=== PATIENT | female | born 1945 | race Caucasian/White ===

== ENCOUNTER 2016-09-07 09:26 | Emergency (ER) | payer MEDICARE ==
[2016-09-07 09:33] VITALS: BP 124/84
--- NOTE | 2016-09-07 09:36 | UC ---
Throat Pain/Nasal Adriano HPI - HPI Summary HPI Summary: 71 YEAR OLD FEMALE PRESENTS WITH COMPLAINS OF SORE THROAT. - History of Current Complaint Chief Complaint: UCRespiratory Stated Complaint: SORE THROAT Time Seen by Provider: 09/07/16 09:36 Hx Last Menstrual Period: n/a - Allergies/Home Medications Allergies/Adverse Reactions: Allergies Allergy/AdvReac Type Severity Reaction Status Date / Time dust, pollen Allergy Sneezing Uncoded 09/07/16 09:33 Home Medications: Home Medications Ranitidine TAB (NF) [Zantac TAB (NF)] 150 mg PO BID 09/07/16 [History Confirmed 09/07/16] PMH/Surg Hx/FS Hx/Imm Hx Previously Healthy: Yes - Surgical History Surgical History: Yes Surgery Procedure, Year, and Place: Appendectomy,left ankle fusion,b/l carpal tunnel surgery, B/L wrist fusion,colecystecomy,b/l knee replacement,C3-4-5 fusions, - Family History Known Family History: Positive: Cardiac Disease, Hypertension - Social History Alcohol Use: None Substance Use Type: None Smoking Status (MU): Never Smoked Tobacco Review of Systems Constitutional: Negative Skin: Negative Eyes: Negative ENT: Sore Throat, Nasal Discharge, Sinus Congestion Respiratory: Negative Cardiovascular: Negative Gastrointestinal: Negative Genitourinary: Negative Motor: Negative Neurovascular: Negative Musculoskeletal: Negative Neurological: Negative Psychological: Negative All Other Systems Reviewed And Are Negative: Yes Physical Exam Triage Information Reviewed: Yes Vital Signs: Initial Vital Signs Temp 37.1 C 09/07/16 09:28 Pulse 81 09/07/16 09:28 Resp 18 09/07/16 09:28 BP 124/84 09/07/16 09:28 Pulse Ox 97 09/07/16 09:28 Eye Exam: Normal ENT: Positive: Pharyngeal erythema, Nasal congestion, Nasal drainage Dental Exam: Normal Neck exam: Normal Neck: Positive: 1 Respiratory Exam: Normal Cardiovascular Exam: Normal Abdominal Exam: Normal Musculoskeletal Exam: Normal Neurological Exam: Normal Psychological Exam: Normal Skin Exam: Normal Throat Pain/Nasal Course/Dx - Differential Dx/Diagnosis Provider Diagnoses: PHARYNGITIS Discharge - Discharge Plan Condition: Stable Disposition: HOME Prescriptions: Azithromyxin AZAEL (NF) [Z-Azael (Zithromax) 250 mg tabs #6] 2 tab PO .TODAY, THEN 1 DAILY #6 tab LoraTADine TAB(NF) [Claritin 10 MG TAB(NF)] 10 mg PO DAILY #30 tab Magic M W2 Manish/Maal/Nyst/Lido* 15 ml SWISH SPIT QID #120 ml guaiFENesin/CODIEN 100MG-10MG* [Robitussin AC 100Mg-10Mg*] 5 ml PO Q6H PRN #120 udc MDD 20 ml PRN Reason: Cough Patient Education Materials: Pharyngitis (ED) Referrals: Nabila Rincon MD [Primary Care Provider] -
== END 2016-09-07 10:17 | disposition home or self-care (01) ==
LOC: UCCORT 09:26
DX: J02.9 Acute pharyngitis, unspecified (principal); R09.81 Nasal congestion; Z96.653 Presence of artificial knee joint, bilateral
CPT/HCPCS: 87651; 99212; G0463

== ENCOUNTER 2016-11-07 10:37 | Emergency (ER) | payer MEDICARE ==
--- NOTE | 2016-11-07 10:41 | UC ---
Respiratory Complaint HPI - HPI Summary HPI Summary: 71 YEAR OLD FEMALE PRESENTS WITH COUGH, FEVER, AND EAR PAIN. - History of Current Complaint Stated Complaint: COUGH Time Seen by Provider: 11/07/16 10:41 Hx Obtained From: Patient Hx Last Menstrual Period: n/a Onset/Duration: Sudden Onset Severity Initially: Moderate Severity Currently: Moderate Pain Scale Used: 0-10 Numeric - 5 - Allergies/Home Medications Allergies/Adverse Reactions: Allergies Allergy/AdvReac Type Severity Reaction Status Date / Time dust, pollen Allergy Sneezing Uncoded 11/07/16 10:44 PMH/Surg Hx/FS Hx/Imm Hx Previously Healthy: Yes - Surgical History Surgical History: Yes Surgery Procedure, Year, and Place: Appendectomy,left ankle fusion,b/l carpal tunnel surgery, B/L wrist fusion,colecystecomy,b/l knee replacement,C3-4-5 fusions, - Family History Known Family History: Positive: Cardiac Disease, Hypertension - Social History Alcohol Use: None Substance Use Type: None Smoking Status (MU): Never Smoked Tobacco Review of Systems Constitutional: Negative Skin: Negative Eyes: Negative ENT: Sore Throat, Nasal Discharge, Sinus Congestion, Sinus Pain/Tenderness Respiratory: Cough Cardiovascular: Negative Gastrointestinal: Negative Genitourinary: Negative Motor: Negative Neurovascular: Negative Musculoskeletal: Negative Neurological: Negative Psychological: Negative All Other Systems Reviewed And Are Negative: Yes Physical Exam Triage Information Reviewed: Yes Vital Signs Reviewed: Yes Eye Exam: Normal ENT Exam: Normal ENT: Positive: Pharyngeal erythema, Nasal congestion Dental Exam: Normal Neck exam: Normal Neck: Positive: 1 Respiratory: Positive: Rhonchi, Wheezing Cardiovascular Exam: Normal Abdominal Exam: Normal Musculoskeletal Exam: Normal Neurological Exam: Normal Psychological Exam: Normal Skin Exam: Normal Respiratory Course/Dx - Differential Dx/Diagnosis Provider Diagnoses: BRONCHITIS Discharge - Discharge Plan Condition: Stable Disposition: HOME Prescriptions: Azithromyxin KATIE (NF) [Z-Katie (Zithromax) 250 mg tabs #6] 2 tab PO .TODAY, THEN 1 DAILY #6 tab guaiFENesin/CODIEN 100MG-10MG* [Robitussin AC 100Mg-10Mg*] 5 ml PO Q8H PRN #120 ml MDD 15 ml PRN Reason: Cough predniSONE TAB* [Deltasone TAB*] 40 mg PO DAILY #10 tab Patient Education Materials: Cold Symptoms (ED) Referrals: Nabila Rincon MD [Primary Care Provider] -
[2016-11-07 10:44] VITALS: BP 128/73
== END 2016-11-07 10:56 | disposition home or self-care (01) ==
LOC: UCCORT 10:37
DX: J40 Bronchitis, not specified as acute or chronic (principal)
CPT/HCPCS: 99212; G0463

== ENCOUNTER 2017-01-20 10:33 | Emergency (ER) | payer MEDICARE ==
[2017-01-20 10:55] VITALS: BP 108/87
--- NOTE | 2017-01-20 12:02 | UC ---
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 She states a hx of thrush "but only after an abx and I haven't had one recently". Denies fever. States an increase in coughing. " -states she gets strep annually this time of year. -denies DM, had routine labs 11/21 for pre-op for rt shoulder. she was on abx at that time but none since. -denies oral or inhaled steroids. -denies RF for HIV -she does wear dentures. -will be going to [place] in 6 days to see her grandkids. - History of Current Complaint Chief Complaint: UCRespiratory Stated Complaint: SORE THROAT Time Seen by Provider: 01/20/17 11:38 Hx Last Menstrual Period: n/a - Allergies/Home Medications Allergies/Adverse Reactions: Allergies Allergy/AdvReac Type Severity Reaction Status Date / Time No Known Allergies Allergy Verified 01/20/17 10:47 Home Medications: Home Medications Omeprazole CAP* [Prilosec CAP* 20 MG] 20 mg PO DAILY 01/20/17 [History Confirmed 01/20/17] PMH/Surg Hx/FS Hx/Imm Hx Previously Healthy: Yes GI/ History: Gastroesophageal Reflux Psychological History: Anxiety, Depression - Surgical History Surgical History: Yes Surgery Procedure, Year, and Place: Appendectomy,left ankle fusion,b/l carpal tunnel surgery, B/L wrist fusion,colecystecomy,b/l knee replacement,C3-4-5 fusions, R shoulder - Family History Known Family History: Positive: Cardiac Disease, Hypertension - Social History Alcohol Use: None Substance Use Type: None Smoking Status (MU): Never Smoked Tobacco - Immunization History Most Recent Influenza Vaccination: 10/2016 Review of Systems Constitutional: Negative Skin: Negative Eyes: Negative ENT: Sore Throat, Other - rt tongue pain x 2 days. tongue coated with white Respiratory: Negative Cardiovascular: Negative Gastrointestinal: Negative Genitourinary: Negative Motor: Negative Neurovascular: Negative Musculoskeletal: Negative Neurological: Negative Psychological: Negative Is Patient Immunocompromised?: No All Other Systems Reviewed And Are Negative: Yes Physical Exam Triage Information Reviewed: Yes Appearance: Well-Appearing, No Pain Distress, Well-Nourished - very good historian. Vital Signs: Initial Vital Signs Temp 98 F 01/20/17 10:38 Pulse 90 01/20/17 10:38 Resp 16 01/20/17 10:38 BP 108/87 01/20/17 10:38 Pulse Ox 98 01/20/17 10:38 Vital Signs Reviewed: Yes Eye Exam: Normal ENT: Positive: Pharyngeal erythema - + white coating over rt tongue lateral OP B /L. rt lateral tongue slightly swollen. no lesions or abscess seen., TMs normal , Other - there is mild assymmetry on right (she notes Dental: Positive: Other: - b/l upper and lower dentures Neck exam: Normal Neck: Positive: Supple, Nontender, No Lymphadenopathy Respiratory: Positive: Lungs clear, Normal breath sounds, No respiratory distress Cardiovascular Exam: Normal Cardiovascular: Positive: RRR, No Murmur Abdomen Description: Positive: Nontender, Soft Skin Exam: Normal Throat Pain/Nasal Course/Dx - Course Course Of Treatment: rapid strep neg. nystatin swish and swallow 5 ml po QID x 10 days and diflucan x 1 dose (denies liver problems) - Differential Dx/Diagnosis Differential Diagnosis/HQI/PQRI: Pharyngitis, Sinusitis Provider Diagnoses: oral thrush Discharge - Discharge Plan Condition: Stable Disposition: HOME Prescriptions: Fluconazole [Diflucan] 150 mg PO ONCE #1 tab Nystatin SUSPENSION* 100,000 unit MT Q6HR 10 Days #480 [facility] [place] Patient Education Materials: Oral Candidiasis (ED) Referrals: Nabila Rincon MD [Primary Care Provider] - 4 Days Additional Instructions: Make sure you keep your dentures very clean
== END 2017-01-20 12:36 | disposition home or self-care (01) ==
LOC: UCCORT 10:33
DX: B37.0 Candidal stomatitis (principal); K21.9 Gastro-esophageal reflux disease without esophagitis; F41.9 Anxiety disorder, unspecified; F32.9 Major depressive disorder, single episode, unspecified
CPT/HCPCS: 87651; 99212; G0463

== ENCOUNTER 2017-02-11 12:49 | Emergency (ER) | payer MEDICARE ==
[2017-02-11 13:30] VITALS: BP 134/60
--- NOTE | 2017-02-11 13:52 | UC ---
Respiratory Complaint HPI - HPI Summary HPI Summary: still has oral thrush x 1 week now med not seeming to help taking lozenges and difulcan x 1 tab po. now c/o dysuria but drinking lots of water. has nasal congestion, nonproductive cough, ear pain - right side, denies fever or chills but says she seems a little off and not herself - not confused but not focusing. - History of Current Complaint Chief Complaint: UCGeneralIllness Stated Complaint: RESPIRATORY/STOMACH VIRUS Time Seen by Provider: 02/11/17 13:23 Hx Obtained From: Patient Hx Last Menstrual Period: n/a Onset/Duration: Lasting Weeks Severity Initially: Moderate Severity Currently: Moderate Character: Cough: Nonproductive Associated Signs And Symptoms: Positive: URI, Nasal Congestion - Risk Factors Pulmonary Embolism Risk Factors: Negative Cardiac Risk Factors: Elevated Lipids Pseudomonas Risk Factors: Negative Tuberculosis Risk Factors: Negative - Allergies/Home Medications Allergies/Adverse Reactions: Allergies Allergy/AdvReac Type Severity Reaction Status Date / Time No Known Allergies Allergy Verified 02/11/17 13:30 Home Medications: Home Medications Lozengers For Thrush 1 tab PO SEE INSTRUCTIONS 02/11/17 [History] PMH/Surg Hx/FS Hx/Imm Hx Previously Healthy: Yes Endocrine History: Dyslipidemia GI/ History: Gastroesophageal Reflux - Surgical History Surgical History: Yes Surgery Procedure, Year, and Place: Appendectomy,left ankle fusion,b/l carpal tunnel surgery, B/L wrist fusion,colecystecomy,b/l knee replacement,C3-4-5 fusions, - Family History Known Family History: Positive: Cardiac Disease, Hypertension - Social History Alcohol Use: None Substance Use Type: None Smoking Status (MU): Never Smoked Tobacco - Immunization History Most Recent Influenza Vaccination: 10/2016 Review of Systems Constitutional: Fatigue Skin: Negative Eyes: Negative ENT: Ear Ache - right ear, Sinus Congestion, Other - thrush - throat Respiratory: Cough - nonproductive Cardiovascular: Negative Gastrointestinal: Negative Genitourinary: Dysuria, Frequency Musculoskeletal: Myalgia - hx - back pain Is Patient Immunocompromised?: No All Other Systems Reviewed And Are Negative: Yes Physical Exam Triage Information Reviewed: Yes Appearance: Ill-Appearing Vital Signs: Initial Vital Signs Temp 98.7 F 02/11/17 13:22 Pulse 89 02/11/17 13:22 Resp 16 02/11/17 13:22 BP 134/60 02/11/17 13:22 Pulse Ox 98 02/11/17 13:22 Vital Signs Reviewed: Yes Eye Exam: Normal ENT: Positive: Pharyngeal erythema, Nasal congestion, TM red - right ear, Hoarse voice Neck exam: Normal Respiratory Exam: Normal Cardiovascular Exam: Normal Neurological: Positive: Fatigued Skin Exam: Normal UC Diagnostic Evaluation - Laboratory O2 Sat by Pulse Oximetry: 98 Respiratory Course/Dx - Course Course Of Treatment: urine dip negative for UTI. take one day of diflucan for thrush and continue lozenges. take abx as directed for right otitis media - take with food add yogurt daily and increase fluid intake daily while on abx to prevent dehydration. f/u pcp 1 week if symptoms not resolving - Differential Dx/Diagnosis Differential Diagnosis/HQI/PQRI: Sinusitis Provider Diagnoses: otitis media Discharge - Discharge Plan Condition: Good Disposition: HOME Prescriptions: Amoxicillin PO (*) [Amoxicillin 875 MG (*)] 875 mg PO BID 10 Days #20 tab Fluconazole [Diflucan 150 MG (NF)] 150 mg PO ONCE #1 tab Patient Education Materials: Oral Candidiasis (ED), Ear Infection (ED) Referrals: Nabila Rincon MD [Primary Care Provider] - 1 Week
== END 2017-02-11 14:05 | disposition home or self-care (01) ==
LOC: UCCORT 12:49
DX: H66.91 Otitis media, unspecified, right ear (principal); R30.0 Dysuria; R35.0 Frequency of micturition; R09.81 Nasal congestion; R05 Cough; R53.83 Other fatigue; B37.0 Candidal stomatitis; E78.5 Hyperlipidemia, unspecified; K21.9 Gastro-esophageal reflux disease without esophagitis; Z96.653 Presence of artificial knee joint, bilateral; Z90.49 Acquired absence of other specified parts of digestive tract
CPT/HCPCS: 81003; 99212; G0463

== ENCOUNTER 2017-07-24 08:06 | Emergency (ER) | payer MEDICARE ==
[2017-07-24 08:22] VITALS: BP 130/78
--- NOTE | 2017-07-24 08:49 | UC ---
Respiratory Complaint HPI - HPI Summary HPI Summary: cough x 2 month cough is productive, yellow sputum + chest congestion, wheezing and sob runny nose, pnd no fever, no chills, - History of Current Complaint Chief Complaint: UCGeneralIllness Stated Complaint: COUGH/RUNNING NOSE/SOB Time Seen by Provider: 07/24/17 08:33 Hx Obtained From: Patient Hx Last Menstrual Period: n/a ?: No Onset/Duration: Gradual Onset, Lasting Weeks - 8, Still Present Timing: Constant Severity Initially: Moderate Severity Currently: Moderate Pain Intensity: 0 Character: Cough: Productive Aggravating Factors: Exertion, Deep Breaths Alleviating Factors: Nothing Associated Signs And Symptoms: Positive: Dyspnea, Wheezing, URI, Nasal Congestion. Negative: Fever, Chills, Hemoptysis, Dizziness, Calf Pain, Calf Swelling, Hoarseness, Sinus Discomfort - Allergies/Home Medications Allergies/Adverse Reactions: Allergies Allergy/AdvReac Type Severity Reaction Status Date / Time No Known Allergies Allergy Verified 02/11/17 13:30 Home Medications: Home Medications Azelastine 0.15% NASAL(NF) [Astepro 0.15% NASAL (NF)] 1 spray INH DAILY [History Confirmed 07/24/17] Budesonide/Formote 160/4.5(NF) [Symbicort 160/4.5 (NF)] 1 puff INH DAILY [History Confirmed 07/24/17] Diclofenac Potassium [Zipsor] 50 mg PO DAILY 07/24/17 [History Confirmed ] Pantoprazole Sodium 40 mg PO DAILY 07/24/17 [History Confirmed 07/24/17] predniSONE [Prednisone 5 MG TAB] 5 mg PO DAILY 07/24/17 [History Confirmed 07/24] sulfaSALAzine TAB* [Azulfidine TAB*] 500 mg PO DAILY 07/24/17 [History Confirmed 07/24/17] PMH/Surg Hx/FS Hx/Imm Hx - Additional Past Medical History Additional PMH: sleep apnea SEASONAL ALLERGIES Respiratory History: Asthma - Surgical History Surgical History: Yes Surgery Procedure, Year, and Place: Appendectomy,left ankle fusion,b/l carpal tunnel surgery, B/L wrist fusion,colecystecomy,b/l knee replacement,C3-4-5 fusions, RIGHT ROTATOR CUFF REPAIR - Family History Known Family History: Positive: Cardiac Disease, Hypertension - Social History Alcohol Use: None Substance Use Type: None Smoking Status (MU): Never Smoked Tobacco - Immunization History Most Recent Influenza Vaccination: 10/2016 Review of Systems Constitutional: Negative Skin: Negative Eyes: Negative ENT: Nasal Discharge Respiratory: Shortness Of Breath, Cough Cardiovascular: Negative Is Patient Immunocompromised?: No All Other Systems Reviewed And Are Negative: Yes Physical Exam Triage Information Reviewed: Yes Appearance: Well-Appearing, No Pain Distress, Well-Nourished Vital Signs: Initial Vital Signs Temp 97.6 F 07/24/17 08:14 Pulse 92 07/24/17 08:14 Resp 21 07/24/17 08:14 BP 130/78 07/24/17 08:14 Pulse Ox 96 07/24/17 08:14 Vital Signs Reviewed: Yes Eye Exam: Normal Eyes: Positive: Conjunctiva Clear ENT: Positive: Normal ENT inspection, Hearing grossly normal, Nasal congestion, Nasal drainage, TMs normal Neck: Positive: Supple, Nontender, No Lymphadenopathy Respiratory Exam: Normal Respiratory: Positive: Chest non-tender, Lungs clear, Normal breath sounds Cardiovascular: Positive: RRR, No Murmur, Pulses Normal Skin Exam: Normal UC Diagnostic Evaluation - Laboratory O2 Sat by Pulse Oximetry: 96 Respiratory Course/Dx - Differential Dx/Diagnosis Provider Diagnoses: Bronchitis Discharge - Sign-Out/Discharge Documenting (check all that apply): Discharge/Admit/Transfer - Discharge Plan Condition: Stable Disposition: HOME Prescriptions: Codeine Phosphate/Guaifenesin [Cheratussin AC] 10 syp PO Q8HR PRN #120 ml MDD 30 ml PRN Reason: Cough predniSONE [Prednisone 20 MG TAB] 20 mg PO DAILY #5 tablet Patient Education Materials: Acute Bronchitis (ED) Referrals: Nabila Rincon MD [Primary Care Provider] - 7 Days - Billing Disposition and Condition Condition: STABLE Disposition: Home
== END 2017-07-24 08:48 | disposition home or self-care (01) ==
LOC: UCCORT 08:06
DX: J40 Bronchitis, not specified as acute or chronic (principal); J45.909 Unspecified asthma, uncomplicated
CPT/HCPCS: 99212; G0463

== ENCOUNTER 2017-09-15 17:17 | Emergency (ER) | payer MEDICARE ==
[2017-09-15 17:34] VITALS: BP 127/70
--- NOTE | 2017-09-15 18:00 | UC ---
Eye Complaint HPI - HPI Summary HPI Summary: 72 year old female presents with onset of bilateral eye redness and pruritis today upon waking from a nap. symptoms associated with nasal congestion and clear nasal drainage. She has significant history of environmental allergies. Denies injury, FB sensation, fever, chills, purulent drainage, tearing, or visual disturbances. - History of Current Complaint Chief Complaint: UCEye Stated Complaint: RIGHT EYE IRRITATION Time Seen by Provider: 09/15/17 17:35 Hx Obtained From: Patient Hx Last Menstrual Period: n/a Onset/Duration: Sudden Onset Timing: Constant Severity Initially: Moderate Severity Currently: Moderate Pain Intensity: 0 Aggravating Factor(s): Nothing Alleviating Factor(s): Nothing Associated Signs And Symptoms: Negative: Photophobia, Drainage (Clear), Drainage (Purulent), Vision Impairment Bilateral, Fever, Swelling - Allergies/Home Medications Allergies/Adverse Reactions: Allergies Allergy/AdvReac Type Severity Reaction Status Date / Time No Known Allergies Allergy Verified 09/15/17 17:34 PMH/Surg Hx/FS Hx/Imm Hx Endocrine History: Dyslipidemia Respiratory History: COPD - Surgical History Surgical History: Yes Surgery Procedure, Year, and Place: Appendectomy,left ankle fusion,b/l carpal tunnel surgery, B/L wrist fusion,colecystecomy,b/l knee replacement,C3-4-5 fusions, RIGHT ROTATOR CUFF REPAIR - Family History Known Family History: Positive: Cardiac Disease, Hypertension - Social History Occupation: Retired Lives: Alone Alcohol Use: None Substance Use Type: None Smoking Status (MU): Never Smoked Tobacco - Immunization History Most Recent Influenza Vaccination: 10/2016 Review of Systems Constitutional: Negative Skin: Negative Eyes: Eye Redness, Other - Pruritis ENT: Negative Respiratory: Negative Is Patient Immunocompromised?: Yes - prednisone All Other Systems Reviewed And Are Negative: Yes Physical Exam Triage Information Reviewed: Yes Appearance: Well-Appearing, No Pain Distress, Well-Nourished Vital Signs: Initial Vital Signs Temp 98.3 F 09/15/17 17:30 Pulse 86 09/15/17 17:30 Resp 16 09/15/17 17:30 BP 127/70 09/15/17 17:30 Pulse Ox 98 09/15/17 17:30 Vital Signs Reviewed: Yes Eyes: Positive: Conjunctiva Inflamed. Negative: Discharge ENT: Positive: Normal ENT inspection Neck: Positive: Supple, Nontender, No Lymphadenopathy Respiratory: Positive: No respiratory distress Neurological: Positive: Alert Skin Exam: Normal Eye Complaint Course/Dx - Course Course Of Treatment: 72 year old female presents with onset of bilateral eye redness and pruritis today. Associated with nasal congestion and clear nasal drainage. She has significant history of environmental allergies. Denies fever, chills, purulent drainage, tearing, or visual disturbances. I suspect that this is an allergic conjunctivits however patient feels strongly that this is bacterial. Based on the time of day and pharmacies being closed I will begin treatment with ciprofloxacin opthalmic 1 drop 4 times a day for 5 days. Patient is to follow up with primary care provider in 3 days if no improvement. - Differential Dx/Diagnosis Differential Diagnosis/HQI/PQRI: Other - allergic vs viral vs bacterial conjunctivitis Provider Diagnoses: conjunctivitis Discharge - Sign-Out/Discharge Documenting (check all that apply): Patient Departure - Discharge Plan Condition: Stable Disposition: HOME Patient Education Materials: Conjunctivitis (ED) Referrals: Nabila Rincon MD [Primary Care Provider] - 3 Days (if no improvement) Additional Instructions: Start the ciprofloxacin ophthalmic 1 drop both eyes 4 times a day for 5 days. You may continue to use the saline eye drops according to directions as needed for dryness. Change you pillow cases every morning to avoid reinfection. Do not share towels or wash clothes with others and do not reuse these. Use good hand washing to avoid spreading to others. Follow up with your primary care provider in 3 days if no improvement. - Billing Disposition and Condition Condition: STABLE Disposition: Home
[2017-09-15] MEDS ORDERED: Ciprofloxacin 0.3% OPTH.SOL* 2.5 ML BTL BOTH EYES ONE (18:13)
[2017-09-15] MEDS ORDERED: Ciprofloxacin 0.3% OPTH.SOL* 5 ML BTL BOTH EYES SCH (21:00)
== END 2017-09-15 18:23 | disposition home or self-care (01) ==
LOC: UCCORT 17:17
DX: H10.9 Unspecified conjunctivitis (principal)
CPT/HCPCS: 99212; A9270-GY; G0463

== ENCOUNTER 2017-12-01 09:01 | Emergency (ER) | payer MEDICARE ==
--- NOTE | 2017-12-01 09:13 | UC ---
Abdominal Pain Female HPI - HPI Summary HPI Summary: Patient presents to urgent care with 2 complaints. 1) patient states she woke up with frequency dysuria feeling like she is "pain glass. Patient denies nausea vomiting. Patient with mild circular pain. No back pain. No analgesia taken. Patient had UTIs in the past. Last antibiotics was greater than one year ago. Patient has taken Pyridium with improvement in the past. No vaginal discharge, itching, rash. Patient's never had pelvic surgery. 2) patient with apparent insect bites on her back last week. Patient now with lesions on her right arm. Patient states very itchy. She used [employer] hydrocortisone cream without relief. Patient states was worse today after the shower. Patient with one spot on her right breast and states feels same. Patient without any trouble breathing. No other complaints. Patient lives alone. No one else with similar symptoms Pt's medications reviewed this visit - History of Current Complaint Stated Complaint: URINARY COMPLAINT Time Seen by Provider: 12/01/17 09:07 Hx Obtained From: Patient Hx Last Menstrual Period: n/a ?: No Onset/Duration: Sudden Onset Severity Initially: Mild Severity Currently: Mild Aggravating Factor(s): Nothing Allergies/Adverse Reactions: Allergies Allergy/AdvReac Type Severity Reaction Status Date / Time No Known Allergies Allergy Verified 12/01/17 09:15 Home Medications: Home Medications Simvastatin TAB(NF) [Zocor(NF)] 20 mg PO 1700 12/01/17 [History Confirmed ] PMH/Surg Hx/FS Hx/Imm Hx Previously Healthy: Yes - Surgical History Surgical History: Yes Surgery Procedure, Year, and Place: Appendectomy,left ankle fusion,b/l carpal tunnel surgery, B/L wrist fusion,colecystecomy,b/l knee replacement,C3-4-5 fusions, RIGHT ROTATOR CUFF REPAIR - Family History Known Family History: Positive: Cardiac Disease, Hypertension - Social History Lives: Alone Alcohol Use: None Substance Use Type: None Smoking Status (MU): Never Smoked Tobacco - Immunization History Most Recent Influenza Vaccination: 10/2016 Review of Systems Constitutional: Negative Skin: Rash Genitourinary: Frequency, Urgency All Other Systems Reviewed And Are Negative: Yes Physical Exam - Summary Physical Exam Summary: Vital Signs Reviewed: Yes A+Ox3, no distress Eyes: Conjunctiva Clear, BERRY. EOM intact and full ENT: Hearing grossly normal TM x 2 clear, mmoist, uvula midline, no exudate, no erythema Neck: Positive: Supple Respiratory: Positive: No respiratory distress, No accessory muscle use + CTA throughout no w/r Cardiovascular: RRR nl s1, s2 no m/r CBT <2 sec abd soft + BS nt/nd no guarding, no distension, no CVA Musculoskeletal Exam: JEREZ x 4 without difficulty Strength Intact, ROM Intact Neurological: Positive: Alert, + sensation throughout Psychological: Positive: Normal Response To Family Skin: Positive: right posterior distal tricep pt with apparent insect bites, pruritic, no cellulitic appearance. Pt with 2 similar lesion on right breast. non tender Triage Information Reviewed: Yes Vital Signs Reviewed: Yes Abd Pain Female Course/Dx - Course Course Of Treatment: Pt present with urinary symptoms including frequency, burning since this morning. no n/v back pain or fever. pt with UTI in past. urinalysis c/w - will start cephalexin,. pyridium. urine culture. return precauton. Pt with well defined lesions to right arm (5 discrete) pruritic, no drainage. appear insect bite. Will Rx hydrocortisone, cool packs. return precautions - Differential Dx/Diagnosis Provider Diagnoses: uti. insect bites Discharge - Sign-Out/Discharge Documenting (check all that apply): Patient Departure All imaging exams completed and their final reports reviewed: No Studies - Discharge Plan Condition: Stable Disposition: HOME Prescriptions: Cephalexin CAP* [Keflex 500 CAP*] 500 mg PO BID #14 cap Hydrocortisone 1% CREAM(NF) 1 applic TOPICAL BID PRN #1 applic PRN Reason: Itching Phenazopyridine TAB* [Pyridium 100 mg TAB*] 100 mg PO TID PRN #9 tab PRN Reason: burning with urination Patient Education Materials: Urinary Tract Infection in Women (ED) Print Language: UGANDAN Referrals: Nabila Rincon MD [Primary Care Provider] - Additional Instructions: - stay well hydrated - drink plenty of non-alcoholic, non caffinated beverages - your urine will be further tested - if you require any changes to your treatment, we will contact you - this usually take 2 days - Contact your primary doctor to arrange a follow-up appointment next week. Contact your doctor or return with questions or concerns - Take your antibiotics exactly as prescribed until gone - Take pyridium as prescribed for discomfort. This will make your urine blaze orange - this is normal - For your itching skin lesions, okay to apply hydrocortisone cream 2 times a day. Okay to use benadryl cream. - Call your doctor or return with questions or concerns - Billing Disposition and Condition Condition: STABLE Disposition: Home
--- OUTSIDE RECORDS SUMMARY | 2017-12-01 09:13 | XMS REPORT | Continuity of Care Document ---
:1945 External Reference #:[id number] Author Name Danielle Payne M.D. Address [address] [place] [address] Care Team Providers Name Role Phone Luis Fernando Krishna M.D. Care Team Information Communication Lecturer Unavailable Nabila Rincon M.D. Primary Care Physician Unavailable Payers Type Date Identification Numbers Payment Provider Subscriber Policy Number: [id number] Medicare-National GVT.Virgie Lu PayID: [id number] [address] [place] [address] Effective: 2014 Policy Number: [facility] Hoa Lu [id number] Group Name: [facility] Supplement Plan C [address] PayID: [id number] [place] [address] Effective: 2001 Policy Number: Medicare-National GVT.Virgie Lu [id number] Expires: 2017 PayID: [id number] [address] [facility] [address] [place] [address] Effective: 2001 Policy Number: [id number] [facility] Hoa Lu Expires: 2014 [facility] [address] [place] [address] Advance Directives Description No Information Available Problems Date Description Provider Status Onset: 02/10/2014 Extrinsic asthma without status Danielle Payne M.D. Active asthmaticus Onset: 02/10/2014 Allergic rhinitis due to pollen Danielle Payne M.D. Active Onset: 12/02/2013 Allergic rhinitis Danielle Payne M.D. Active Onset: 12/02/2013 Cough Danielle Payne M.D. Active Family History Date Family Member(s) Problem(s) Comments General Seasonal Allergies General Asthma General Gastroesophageal Reflux Disease (GERD) General Heart Disease General Thyroid Disease hypothyroidism Mother Seasonal Allergies Mother Asthma Mother Gastroesophageal Reflux Disease (GERD) Mother Heart Disease A FIB Mother munchausen syndrome First Daughter Seasonal Allergies First Brother Asthma Social History Type Date Description Comments Sex Unknown Marital Status Legal Status: Lives With Alone Home Environment 20+Year Old Home, 2 Years year and a half in In Current Home housing Home Environment 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 Has central air Home Environment There is no basement Home Environment Cotton Comforter Home Environment Mattress is 5 years old Home Environment Mattress is not encased in an allergy proof case Home Environment Regular Mattress Home Environment Pillows are not encased in an allergy proof case Home Environment Pillows are polyester Home Environment Does not use a dehumidifier Home Environment There are no draperies in the home Home Environment The home is crisitno Less than average Home Environment The floors are carpeted Wall to Wall Home Environment The floors are tile Home Environment Uses forced air heating Home Environment [place] 1st [place] Home Environment Water Source: [facility] Smoke-Free Home is smoke-free Smoke-Free Work is smoke-free Pets None Occupation Retired ETOH Use Denies alcohol use Tobacco Use Start: Unknown Patient has never smoked Recreational Drug Use Never Used Drugs Allergies, Adverse Reactions, Alerts Description No Known Drug Allergies Medications Medication Date Status Form Strength Qnty SIG Indications Ordering Provider Symbicort 07/31/ Active Aerosol 160-4.5mcg 30.6g 2 Dim[facility] 2018 /Act m inhalations Uldrich, am&pm ELECTROMECHANICAL INSPECTOR-C Spiriva 05/29/ Active Aerosol 1.25mcg/Ac 4unit 2 puffs once Dimple Respimat 2017 t s daily Uldrich ELECTROMECHANICAL INSPECTOR-C Proair HFA 05/22/ Active Aerosol 108(90Base 1unit two Dimple 2018 ) mcg/Act s inhalations Uldrich, every 4 ELECTROMECHANICAL INSPECTOR-C hours as needed for cough, wheezing or chest tightness Zyrtec Allergy 03/13/ Active Tablets 10mg 30tab 1 tablet Maria Victoria 2017 Dispers s every day Forshier, ELECTROMECHANICAL INSPECTOR-C Azelastine HCL 03/13/ Active Solution 0.1% 30uni one spray Maria Victoria (Nasal) 2018 ts each nostril Neller, in the ELECTROMECHANICAL INSPECTOR-C morning and at night Meloxicam / Active Tablets 7.5mg one tab Unknown 0000 daily Simvastatin 00/ Active Tablets 20mg 1 tab daily. Unknown 0000 Pantoprazole / Active Tablets DR 40mg 1 tab daily. Unknown Sodium 0000 Diclofenac / Active Tablets 50mg Unknown Potassium 0000 Sertraline HCL / Active Tablets 50mg take 1 Unknown 0000 tablet by mouth once daily Medications Administered in Office Medication Date Status Form Strength Qnty SIG Indications Ordering Provider Injection 11/28/19 Administered Injection Allergy 18 Injection Injection 11/14/19 Administered Injection Allergy 18 Injection Injection 11/07/19 Administered Injection Allergy 18 Injection Injection 10/31/19 Administered Injection Allergy 18 Injection Injection 10/24/19 Administered Injection [facility] Ronald Payne M.D. Injection 10/24/19 Administered Injection Allergy 18 Injection Injection 10/17/19 Administered Injection [facility] Ronald Payne M.D. Injection 10/17/19 Administered Injection Allergy 18 Injection Injection 10/10/19 Administered Injection Allergy 18 Injection Injection 09/26/19 Administered Injection Allergy 18 Injection Injection 09/19/19 Administered Injection Allergy 18 Injection Injection 09/12/19 Administered Injection Allergy 18 Injection Injection 09/05/19 Administered Injection Allergy 18 Injection Injection 08/29/19 Administered Injection Allergy 18 Injection Injection 08/22/19 Administered Injection Allergy 18 Injection Injection 08/15/19 Administered Injection Allergy 18 Injection Injection 08/08/19 Administered Injection Allergy 18 Injection Immunizations CPT Code Status Date Vaccine Lot # 17236 Given 11/25/2013 Influenza Vaccine 34037 Given 11/18/2013 Pneumococcal Vaccine 78264 Given 02/07/2010 Pneumococcal Vaccine 72955 Given Unknown Pneumococcal Vaccine 80433 Given Unknown Pneumococcal Vaccine 97527 Given Unknown Influenza Vaccine 11368 Given Unknown Influenza Vaccine 83640 Given Unknown Influenza Vaccine 80346 Given Unknown Influenza Vaccine Vital Signs Date Vital Result Comment 11/28/2017 10:27am Height 64 inches 5'4" Weight 216.00 lb Weight 97.978 kg Respiratory Rate 20 /min Heart Rate 74 /min O2 % BldC Oximetry 95 % BP Systolic 132 mmHg BP Diastolic 67 mmHg Asthma Control Test 25 BMI (Body Mass Index) 37.1 kg/m2 07/31/2017 9:32am Height 64 inches 5'4" Respiratory Rate 20 /min Heart Rate 79 /min O2 % BldC Oximetry 96 % BP Systolic 108 mmHg BP Diastolic 63 mmHg 05/29/2017 11:40am Height 64 inches 5'4" Weight 214.00 lb refused weight Weight 97.070 kg Respiratory Rate 18 /min Heart Rate 78 /min Body Temperature 97.3 F O2 % BldC Oximetry 95 % BP Systolic 119 mmHg BP Diastolic 73 mmHg Asthma Control Test 12 BMI (Body Mass Index) 36.7 kg/m2 05/09/2017 11:01am Height 64 inches 5'4" Weight 214.00 lb Weight 97.070 kg Respiratory Rate 18 /min Heart Rate 78 /min O2 % BldC Oximetry 95 % BP Systolic 96 mmHg BP Diastolic 58 mmHg Asthma Control Test 21 BMI (Body Mass Index) 36.7 kg/m2 04/10/2017 11:27am Height 64 inches 5'4" Weight 214.00 lb Weight 97.070 kg Respiratory Rate 16 /min Heart Rate 63 /min O2 % BldC Oximetry 96 % BP Systolic 119 mmHg BP Diastolic 62 mmHg Asthma Control Test 24 BMI (Body Mass Index) 36.7 kg/m2 03/13/2017 1:50pm Height 64 inches 5'4" Weight 214.00 lb Weight 97.070 kg Respiratory Rate 20 /min Heart Rate 87 /min O2 % BldC Oximetry 95 % BP Systolic 109 mmHg BP Diastolic 69 mmHg Asthma Control Test 20 BMI (Body Mass Index) 36.7 kg/m2 07/04/2016 10:32am Height 64 inches 5'4" Weight 207.00 lb pt stated Weight 93.895 kg Respiratory Rate 16 /min Heart Rate 67 /min O2 % BldC Oximetry 98 % BP Systolic 94 mmHg BP Diastolic 56 mmHg Asthma Control Test 24 BMI (Body Mass Index) 35.5 kg/m2 06/20/2016 11:06am Height 64 inches 5'4" Weight 207.00 lb Weight 93.895 kg Respiratory Rate 16 /min Heart Rate 78 /min O2 % BldC Oximetry 98 % BP Systolic 123 mmHg BP Diastolic 69 mmHg Asthma Control Test 15 BMI (Body Mass Index) 35.5 kg/m2 06/07/2016 3:05pm Height 64 inches 5'4" Weight 207.00 lb Weight 93.895 kg Respiratory Rate 24 /min Heart Rate 86 /min Body Temperature 96.7 F O2 % BldC Oximetry 97 % BP Systolic 111 mmHg BP Diastolic 73 mmHg Asthma Control Test 10 BMI (Body Mass Index) 35.5 kg/m2 06/16/2014 11:32am Height 64 inches 5'4" Weight 214.00 lb Weight 97.070 kg Respiratory Rate 16 /min Heart Rate 68 /min O2 % BldC Oximetry 96 % BP Systolic 102 mmHg BP Diastolic 78 mmHg Asthma Control Test 22 BMI (Body Mass Index) 36.7 kg/m2 02/10/2014 8:38am Height 64 inches 5'4" Weight 210.00 lb Per pt Weight 95.256 kg Respiratory Rate 16 /min Heart Rate 67 /min O2 % BldC Oximetry 97 % BP Systolic 112 mmHg BP Diastolic 68 mmHg Asthma Control Test 23 BMI (Body Mass Index) 36.0 kg/m2 12/09/2013 1:32pm Height 64 inches 5'4" Weight 214.00 lb Weight 97.070 kg Respiratory Rate 16 /min Heart Rate 81 /min O2 % BldC Oximetry 96 % BP Systolic 115 mmHg BP Diastolic 65 mmHg Asthma Control Test 19 BMI (Body Mass Index) 36.7 kg/m2 12/02/2013 1:31pm Height 64 inches 5'4" Weight 210.00 lb Weight 95.256 kg Respiratory Rate 19 /min Heart Rate 73 /min O2 % BldC Oximetry 95 % BP Systolic 118 mmHg BP Diastolic 74 mmHg BMI (Body Mass Index) 36.0 kg/m2 Results Description No Information Available Procedures Date Code Description Status 11/28/2017 82600 Pre PFT Completed 11/27/2017 69109 Injection Completed 11/13/2017 75967 Injection Completed 11/06/2017 50656 Injection Completed 10/30/2017 97316 Injection Completed 10/23/2017 78907 Injection Completed 10/23/2017 67095 Injection Completed 10/16/2017 58524 Injection Completed 10/16/2017 32334 Injection Completed 10/09/2017 63094 Injection Completed 09/25/2017 62958 Injection Completed 09/18/2017 47905 Injection Completed 09/11/2017 05025 Injection Completed 09/04/2017 13671 Injection Completed 08/28/2017 14724 Injection Completed 08/21/2017 88916 Injection Completed 08/14/2017 42364 Injection Completed 08/07/2017 19782 Injection Completed 08/06/2017 93570 Extract 1-10 Completed 07/31/2017 53143 Pre PFT Completed 05/29/2017 64099 Pre PFT Completed 05/09/2017 37108 Pre PFT Completed 04/10/2017 42592 Pre PFT Completed 03/13/2017 55023 Pre PFT Completed 03/13/2017 24842 Pre PFT Completed 07/04/2016 19972 Pre PFT Completed 06/20/2016 17887 Pre PFT Completed 06/07/2016 65694 Pre PFT Completed 06/16/2014 13160 Pre PFT Completed 12/09/2013 71261 Skin Test Scratch # Of Units ____ Completed 12/02/2013 43468 Pulmonary Function Test Completed Encounters Type Date Location Provider Dx Diagnosis Office Visit 11/28/2017 [facility] Dimple Rice, J30.1 Allergic rhinitis 10:20a ELECTROMECHANICAL INSPECTOR-C due to pollen J30.2 Other seasonal allergic rhinitis J30.81 Allergic rhinitis due to animal (cat) (dog) hair and dander J30.89 Other allergic rhinitis J45.41 Moderate persistent asthma with (acute) exacerbation Office Visit 07/31/2017 9:40a [facility] Dimple J45.41 Moderate Uldrich, ELECTROMECHANICAL INSPECTOR-C persistent asthma with (acute) exacerbation J30.89 Other allergic rhinitis J30.1 Allergic rhinitis due to pollen J30.2 Other seasonal allergic rhinitis Office Visit 05/29/2017 11:40a [facility] Dimple Lioneldrich, ELECTROMECHANICAL INSPECTOR-C R05 Cough J45.40 Moderate persistent asthma, uncomplicated J30.2 Other seasonal allergic rhinitis J30.1 Allergic rhinitis due to pollen J30.89 Other allergic rhinitis Office Visit 05/09/2017 11:00a [facility] Dimple J45.40 Moderate persistent Uldrich, ELECTROMECHANICAL INSPECTOR-C asthma, uncomplicated J30.2 Other seasonal allergic rhinitis J30.1 Allergic rhinitis due to pollen J30.89 Other allergic rhinitis Office Visit 04/10/2017 11:20a [facility] Maria Victoria Martinez J45.40 Moderate persistent Office ELECTROMECHANICAL INSPECTOR-C asthma, uncomplicated J30.2 Other seasonal allergic rhinitis J30.1 Allergic rhinitis due to pollen R05 Cough Office Visit 03/13/2017 2:00p [facility] Maria Victoria Mottjaylen, J45.40 Moderate persistent Office ELECTROMECHANICAL INSPECTOR-C asthma, uncomplicated J30.89 Other allergic rhinitis J30.1 Allergic rhinitis due to pollen Office Visit 07/04/2016 10:20a [facility] Dimple J45.40 Moderate persistent Uldrich, ELECTROMECHANICAL INSPECTOR-C asthma, uncomplicated J30.89 Other allergic rhinitis J30.2 Other seasonal allergic rhinitis Z68.35 Body mass index (BMI) 35.0-35.9, adult Office Visit 06/20/2016 11:00a [facility] Dimple J45.40 Moderate persistent Uldrich, ELECTROMECHANICAL INSPECTOR-C asthma, uncomplicated J30.1 Allergic rhinitis due to pollen J30.89 Other allergic rhinitis J30.2 Other seasonal allergic rhinitis Z68.35 Body mass index (BMI) 35.0-35.9, adult Office Visit 06/07/2016 3:00p [facility] Cheryl Keshav, J45.41 Moderate ELECTROMECHANICAL INSPECTOR-C persistent asthma with (acute) exacerbation J30.1 Allergic rhinitis due to pollen J30.89 Other allergic rhinitis Z68.35 Body mass index (BMI) 35.0-35.9, adult Office Visit 06/16/2014 11:20a [facility] Danielle Millard7.0 Rhinitis An Payne Allergic Due To Pollen 477.8 Rhinitis Allergic Due To Other Allergen 493.00 Asthma Extrinsic Unspecified V85.36 Body Mass Index 36.0-36.9, Adult Office Visit 02/10/2014 8:40a [facility] Danielle Millard7.0 Rhinitis An Payne Allergic Due To Pollen 477.8 Rhinitis Allergic Due To Other Allergen 493.00 Asthma Extrinsic Unspecified Office Visit 12/09/2013 2:00p [facility] Danielle Payne M.D. 786.2 Cough 477.9 Rhinitis Allergic Cause Unspec Office Visit 12/02/2013 1:20p [facility] Danielle Payne M.D. 786.2 Cough 477.9 Rhinitis Allergic Cause Unspec Plan of Treatment Future Appointment(s):05/29/2018 11:00 am - [facility] [id number]/28/2017 - Dimple Nunezich, ELECTROMECHANICAL INSPECTOR-CJ30.1 Allergic rhinitis due to cibgxiM39.2 Other seasonal allergic lyomqgvoX00.81 Allergic rhinitis due to animal (cat) (dog) hair and pldpqlP93.89 Other allergic njynniklK19.41 Moderate persistent asthma with (acute) exacerbationFollow up:6 months with pre PFTRecommendations:Continue all medications as prescribed.Refrain from wearing perfumes/scented colognes while visitingour office. Continue: Symbicort 2 puffs twice a day with the holding chamber. Stop the Spiriva for now Ventolin 2 puffs every 4 hours as needed for cough, shortness of breath, chest congestion or pain, or wheezing. Monitor Albuterol use. If using more than 2x/ week, please call the office as your asthma medications may need to be adjusted. Continue the Zyrtec 1 daily at night Rinse your mouth with water after using your inhaler to help prevent hoarseness, throat irritation, and infection in themouth. PFT done today. Pulmonary Function Studies are done by exhaling (blowing) into a machine to detect an asthmatic condition or other lung problem. Results reviewed with the patient,and is mild restriction.
[2017-12-01 09:22] VITALS: BP 117/71
== END 2017-12-01 09:45 | disposition home or self-care (01) ==
LOC: UCCORT 09:01
DX: N39.0 Urinary tract infection, site not specified (principal); S40.861A Insect bite (nonvenomous) of right upper arm, initial encounter; W57.XXXA Bitten or stung by nonvenomous insect and other nonvenomous arthropods, initial encounter; Y92.9 Unspecified place or not applicable; Z96.653 Presence of artificial knee joint, bilateral
CPT/HCPCS: 81003; 99212; G0463

== ENCOUNTER 2018-03-22 09:10 | Emergency (ER) | payer MEDICARE ==
[2018-03-22 09:57] VITALS: BP 117/51
--- NOTE | 2018-03-22 10:48 | UC ---
Complaint Female HPI - HPI Summary HPI Summary: Pt presents with c/o sudden onset of urinary frequency, urgency and dysuria X 3 days. Pt is concerned she has a UTI - History Of Current Complaint Chief Complaint: UCGU Stated Complaint: URINARY Time Seen by Provider: 03/22/18 10:15 Hx Obtained From: Patient Hx Last Menstrual Period: n/a ?: No Onset/Duration: Sudden Onset, Lasting Days, Still Present Timing: Constant Severity Initially: Mild Severity Currently: Mild Pain Intensity: 3 Character: Burning Aggravating Factor(s): Urination Alleviating Factor(s): Nothing Associated Signs And Symptoms: Positive: Negative Related Hx: Similar Episode/Dx as: - uti - Risk Factors Ectopic Risk Factor: Negative Ovarian Torsion Risk Factor: Negative - Allergies/Home Medications Allergies/Adverse Reactions: Allergies Allergy/AdvReac Type Severity Reaction Status Date / Time No Known Allergies Allergy Verified 03/22/18 09:49 PMH/Surg Hx/FS Hx/Imm Hx Previously Healthy: Yes Endocrine History: Dyslipidemia Psychological History: Depression - Surgical History Surgical History: Yes Surgery Procedure, Year, and Place: Appendectomy,left ankle fusion,b/l carpal tunnel surgery, B/L wrist fusion,colecystecomy,b/l knee replacement,C3-4-5 fusions, RIGHT ROTATOR CUFF REPAIR - Family History Known Family History: Positive: Cardiac Disease, Hypertension - Social History Occupation: Retired Lives: With Family Alcohol Use: None Substance Use Type: None Smoking Status (MU): Never Smoked Tobacco Have You Smoked in the Last Year: No - Immunization History Most Recent Influenza Vaccination: 10/2016 Review of Systems All Other Systems Reviewed And Are Negative: Yes Constitutional: Positive: Negative Skin: Positive: Negative Eyes: Positive: Negative ENT: Positive: Negative Respiratory: Positive: Negative Cardiovascular: Positive: Negative Gastrointestinal: Positive: Negative Genitourinary: Positive: Dysuria, Frequency, Urgency Motor: Positive: Negative Neurovascular: Positive: Negative Musculoskeletal: Positive: Negative Neurological: Positive: Negative Psychological: Positive: Negative Is Patient Immunocompromised?: No Physical Exam Triage Information Reviewed: Yes Appearance: Well-Appearing Vital Signs: Initial Vital Signs Temp 97.8 F 03/22/18 09:51 Pulse 72 03/22/18 09:51 Resp 17 03/22/18 09:51 BP 117/51 03/22/18 09:51 Pulse Ox 96 03/22/18 09:51 Vital Signs Reviewed: Yes Eye Exam: Normal ENT Exam: Normal Dental Exam: Normal Neck exam: Normal Respiratory Exam: Normal Cardiovascular Exam: Normal Abdominal Exam: Normal Abdomen Description: Positive: Nontender Musculoskeletal Exam: Normal Neurological Exam: Normal Psychological Exam: Normal Skin Exam: Normal Complaint Female Dx - Differential Dx/Diagnosis Differential Diagnosis/HQI/PQRI: Urinary Tract Infection, Other - dysuria Provider Diagnosis: Dysuria-frequency syndrome Discharge - Sign-Out/Discharge Documenting (check all that apply): Patient Departure All imaging exams completed and their final reports reviewed: No Studies - Discharge Plan Condition: Stable Disposition: HOME Prescriptions: Nitrofurantoin Monohyd/M-Cryst [Macrobid 100 mg Capsule] 100 mg PO Q12H #14 cap Phenazopyridine TAB* [Pyridium 100 mg TAB*] 100 mg PO Q8H #6 tab Patient Education Materials: Dysuria (ED) Referrals: Nabila Rincon MD [Primary Care Provider] - If Needed - Billing Disposition and Condition Condition: STABLE Disposition: Home
--- NOTE | 2018-03-24 08:13 | UC ---
- Progress Note Progress Note: Urine culture negative. Ok to stop antibiotics. Course/Dx - Diagnoses Provider Diagnoses: Dysuria-frequency syndrome Discharge - Sign-Out/Discharge Documenting (check all that apply): Patient Departure All imaging exams completed and their final reports reviewed: No Studies - Discharge Plan Condition: Stable Disposition: HOME Prescriptions: Nitrofurantoin Monohyd/M-Cryst [Macrobid 100 mg Capsule] 100 mg PO Q12H #14 cap Phenazopyridine TAB* [Pyridium 100 mg TAB*] 100 mg PO Q8H #6 tab Patient Education Materials: Dysuria (ED) Referrals: Nabila Rincon MD [Primary Care Provider] - If Needed - Billing Disposition and Condition Condition: STABLE Disposition: Home
== END 2018-03-22 10:40 | disposition home or self-care (01) ==
LOC: UCCORT 09:10
DX: R30.0 Dysuria (principal); R39.15 Urgency of urination; R35.0 Frequency of micturition
CPT/HCPCS: 81003; 87086; 99212; G0463